=== PATIENT | female | born 1965 | race Caucasian/White ===

== ENCOUNTER 2016-08-22 10:31 | Emergency (ER) | payer OTHER, MEDICAID ==
[2016-08-22] MEDS ORDERED: ONDANSETRON 4 MG VIAL ONE (13:18)
[2016-08-22] MEDS ORDERED: KETOROLAC 30 MG/ML VIAL ONE (13:19)
[2016-08-22] MEDS ORDERED: CEFTRIAXONE 1 GM VIAL ONE (13:19)
[2016-08-22] MEDS ORDERED: SODIUM CHLORIDE 0.9% 100 ML IV ONE (13:20)
[2016-08-22] MEDS ORDERED: SODIUM CHLORIDE 0.9% 1,000 ML ONE (13:20)
== END 2016-08-22 15:25 | disposition home or self-care (01) ==
LOC: ER 10:31
DX: N30.01 Acute cystitis with hematuria (principal); R11.0 Nausea; N23 Unspecified renal colic
CPT/HCPCS: 36415; 80053; 81001; 83690; 85025; 87077; 87088; 87186; 96361; 96365; 96375